=== PATIENT | male | born 1995 | race Caucasian/White ===

== ENCOUNTER 2020-07-03 08:19 | Emergency (ER) | payer BC, OTHER ==
[~2020-07-03] VITALS: Ht 175.3 cm; Wt 113.4 kg
--- NOTE | 2020-07-03 10:16 | ED General ---
General Chief Complaint: Bite-Animal/Human/Insect Stated Complaint: RT WRIST DOG BITE Nursing Triage Note: Patient reports he was walking down [facility] at 3 am on Saturday morning when a small dog attacked him and bit him on his right wrist. The dog ran away and he is unsure of the dog's vaccination status or who it belongs to. Small scratch visible on right wrist. Nursing Sepsis Screen: No Definite Risk Source of Information: Caregiver History of Present Illness Date Seen by Provider: Jul 03, 2020 Time Seen by Provider: 10:09 Initial Comments Patient presents with an abrasion to his right wrist. Injury occurred 2 days ago after being bit or scratched by an unknown dog that had a collar on. Injury occurred in the datastage consultant hours and patient was not able to ID the dog. Animal control was contacted and unable to find the dog based upon the description. The patient immediately washed and repeatedly cleaned the wound. He states there is only a small amount of blood present pump initial bite. Reports no secondary symptoms of infection. No other injuries or complaints. His tetanus is up-to-date. Timing/Duration: 2-3 Days Severity: Mild Modifying Factors: improves with Other Associated Systoms: Other Allergies and Home Medications Allergies Coded Allergies: No Known Drug Allergies (Unverified , 07/03/20) Patient Home Medication List Home Medication List Reviewed: Yes Review of Systems Review of Systems Constitutional: see HPI EENTM: see HPI Respiratory: see HPI Cardiovascular: no symptoms reported Gastrointestinal: see HPI Genitourinary: see HPI Musculoskeletal: see HPI Skin: see HPI Psychiatric/Neurological: See HPI Hematologic/Lymphatic: See HPI Immunological/Allergic: see HPI All Other Systems Reviewed Negative Unless Noted: Yes Past Posuuck-Azriac-Wqpeqx Hx Past Med/Social Hx: Reviewed Nursing Past Med/Soc Hx Patient Social History Alcohol Use: Denies Use Smoking Status: Current Someday Smoker Type Used: Cigarettes 2nd Hand Smoke Exposure: No Recent Infectious Disease Expo: No Recent Hopitalizations: No Seasonal Allergies Seasonal Allergies: No Past Medical History Surgeries: No Respiratory: No Cardiac: No Neurological: No Genitourinary: No Gastrointestinal: No Musculoskeletal: No Endocrine: No HEENT: No Cancer: No Psychosocial: No Integumentary: No Physical Exam Vital Signs Vital Signs - First Documented 07/03/20 08:30 Temp 37.1 Pulse 78 Resp 16 B/P (MAP) 143/79 (100) Pulse Ox 99 O2 Delivery Room Air Capillary Refill : Less Than 3 Seconds Height, Weight, BMI Height: '" Weight: lbs. oz. kg; 36.00 BMI Method: General Appearance: No Apparent Distress Extremity: Other (Patient with 1.5 cm abrasion with underlying contusion to volar aspect of right wrist. There is no laceration but a superficial break in the epidermis was likely to be present at time of injury) Progress/Results/Core Measures Suspected Sepsis Recent Fever Within 48 Hours: No Infection Criteria Present: None New/Unexplained Altered Menta: No Sepsis Screen: No Definite Risk SIRS Temperature: Pulse: 78 Respiratory Rate: 16 Blood Pressure 143 /79 Mean: 100 Results/Orders Vital Signs/I&O 07/03/20 08:30 Temp 37.1 Pulse 78 Resp 16 B/P (MAP) 143/79 (100) Pulse Ox 99 O2 Delivery Room Air Capillary Refill : Less Than 3 Seconds Blood Pressure Mean: 100 Departure Communication (Admissions) Animal control contacted. Rabies vaccination offered since the animals not able to be located in quarantine. Risks versus benefits versus alternatives described and discussed in detail with patient who verbalizes understanding and request vaccination to be given. Impression Primary Impression: Bite by animal Disposition: 01 HOME, SELF-CARE Condition: Stable Departure-Patient Inst. Decision time for Depature: 10:26 Referrals: NO,LOCAL PHYSICIAN (PCP/Family) Primary Care Physician Patient Instructions: Animal Bites (DC) Add. Discharge Instructions: Your were evaluated in the ED for possible rabies exposure. The initial vaccination was given. Please follow-up as an outpatient for the completion of the remaining vaccinations as instructed. All discharge instructions reviewed with patient and/or family. Voiced understanding. MICHEL TORIBIO DO Jul 03, 2020 10:16
[2020-07-03] MEDS ORDERED: RABIES IMMUNE GLOBULIN 300 UNIT/ML 5 ML (HyperRAB) IM ONE (10:30)
[2020-07-03] MEDS ORDERED: RABIES VACCINE HUMAN DIPL CELL 1 ML/2.5 UNITS SYR IM ONE (10:30)
[2020-07-03 11:10] VITALS: BP 151/82
== END 2020-07-03 11:10 | disposition home or self-care (01) ==
LOC: ER FS 08:25
DX: S60.211A Contusion of right wrist, initial encounter (principal); F17.210 Nicotine dependence, cigarettes, uncomplicated; Z23 Encounter for immunization; W54.0XXA Bitten by dog, initial encounter
CPT/HCPCS: 90375; 90675; 99284

== ENCOUNTER 2020-07-17 08:48 | Outpatient (RCR) | payer BC ==
[2020-07-06 08:35] VITALS: BP 130/76
[2020-07-10 09:55] VITALS: BP 133/86
[~2020-07-17] VITALS: Ht 175.3 cm; Wt 113.4 kg
[~2020-07-17 08:48] MED LIST: RABIES VACCINE HUMAN DIPL CELL 1 ML/2.5 UNITS SYR INJ ONE
[2020-07-17 09:10] VITALS: BP 126/86
== END 2020-07-17 09:15 | disposition home or self-care (01) ==
LOC: SDC 08:48
PROVIDERS: ATTEND Emergency Medicine
DX: Z01.89 Encounter for other specified special examinations (principal)
CPT/HCPCS: 90471; 90675

== ENCOUNTER 2021-06-19 11:18 | Emergency (ER) | payer BC ==
[~2021-06-19] VITALS: Ht 172 cm; Wt 65.0 kg
--- NOTE | 2021-06-19 11:28 | ED Neck-Back Pain/Injury ---
General Chief Complaint: Head/Cervical Problems Stated Complaint: NECK INJ History of Present Illness Date Seen by Provider: Jun 19, 2021 Time Seen by Provider: 11:25 Initial Comments 26-year-old male presents "I think I broke my neck" patient reports that he was popping his neck when it made a different sound. Patient drove to the ER without difficulty. Patient was observed by staff walking into the ER with no difficulty. Upon arrival to the ER he became very anxious but had no complaints of any specific numbness, tingling, focal weakness, bowel or bladder issues. Patient is able to move all extremities. Allergies and Home Medications Allergies Coded Allergies: No Known Drug Allergies (Unverified , 07/03/20) Patient Home Medication List Home Medication List Reviewed: Yes Review of Systems Constitutional: No chills, No fever EENTM: see HPI Respiratory: no symptoms reported Cardiovascular: no symptoms reported Gastrointestinal: no symptoms reported Genitourinary: no symptoms reported Musculoskeletal: see HPI Skin: no symptoms reported Psychiatric/Neurological: Anxiety Past Cikxldi-Hrendt-Jxslay Hx Seasonal Allergies Seasonal Allergies: No Past Medical History Surgeries: No Respiratory: No Cardiac: No Neurological: No Genitourinary: No Gastrointestinal: No Musculoskeletal: No Endocrine: No HEENT: No Cancer: No Psychosocial: No Integumentary: No Physical Exam Vital Signs Vital Signs - First Documented 06/19/21 11:20 Temp 36.7 Pulse 121 Resp 20 B/P (MAP) 158/71 (100) Pulse Ox 97 O2 Delivery Room Air Capillary Refill : Height, Weight, BMI Height: '" Weight: lbs. oz. kg; 36.00 BMI Method: General Appearance: Anxious HEENT: PERRL/EOMI Neck: Tender Lateral; No Tender Midline Cardiovascular: No Edema Respiratory: Chest Non Tender, Lungs Clear, Normal Breath Sounds Gastrointestinal: Non Tender, Soft Extremity: Normal Capillary Refill, Non Tender, No Calf Tenderness Neurologic/Psychiatric: Alert, Oriented x3, No Motor/Sensory Deficits, Normal Mood/Affect, customer support representative II-XII Norm as Tested Skin: Normal Color, Warm/Dry Progress/Results/Core Measures Results/Orders My Orders Orders - MICKY HUGO DO Ct Cervical Spine Wo (06/19/21 11:28) Vital Signs/I&O 06/19/21 06/19/21 11:20 12:04 Temp 36.7 35.7 Pulse 121 94 Resp 20 16 B/P (MAP) 158/71 (100) 142/72 Pulse Ox 97 100 O2 Delivery Room Air Room Air Progress Progress Note : Progress Note Patient continued to act like there was some bothering him. I was able to eventually get him to admit that he also ingested a bunch of "D8 Gummies" which are marijuana induced Gummies. I discussed with him that that the likely the cause of his abnormal feeling and that he is somewhat high. Patient has no acute findings on his cervical exam and CT. Patient stable and discharged home Diagnostic Imaging Diagonstic Imaging: CT Plain Films/CT/US/NM/MRI: other Comments Date of Exam:06/19/21 CT CERVICAL SPINE WO PROCEDURE: CT cervical spine without contrast. TECHNIQUE: Multiple contiguous axial images were obtained through the cervical spine without the use of intravenous contrast. Sagittal and coronal reformations were then performed. Auto Exposure Controls were utilized during the CT exam to meet ALARA standards for radiation dose reduction. INDICATION: Popped neck, now with numbness and tingling throughout the body. No prior studies are available for comparison. There is slight reversal normal cervical lordotic curvature. No fractures or subluxation is identified. Prevertebral tissues are within normal limits. Odontoid is intact. IMPRESSION: No acute bony abnormality is detected. Reviewed: Reviewed/Discussed Departure Impression Primary Impression: Neck strain Qualified Codes: S16.1XXA - Strain of muscle, fascia and tendon at neck daron kemp, initial encounter Additional Impression: Cannabis intoxication Qualified Codes: F12.920 - Cannabis use, unspecified with intoxication, uncomplicated Disposition: HOME, SELF-CARE Condition: Stable Departure-Patient Inst. Referrals: NO,LOCAL PHYSICIAN (PCP/Family) Primary Care Physician Patient Instructions: Neck Sprain (DC), Marijuana Use and Addiction Add. Discharge Instructions: Tylenol ibuprofen as needed for your neck spasm 4% topical lidocaine as directed on package All discharge instructions reviewed with patient and/or family. Voiced understanding. MICKY HUGO DO Jun 19, 2021 11:28
--- NOTE | 2021-06-19 12:02 | Diagnostic Imaging Report ---
PROCEDURE: CT cervical spine without contrast. TECHNIQUE: Multiple contiguous axial images were obtained through the cervical spine without the use of intravenous contrast. Sagittal and coronal reformations were then performed. Auto Exposure Controls were utilized during the CT exam to meet ALARA standards for radiation dose reduction. INDICATION: Popped neck, now with numbness and tingling throughout the body. No prior studies are available for comparison. There is slight reversal normal cervical lordotic curvature. No fractures or subluxation is identified. Prevertebral tissues are within normal limits. Odontoid is intact. IMPRESSION: No acute bony abnormality is detected. Dictated by: Dictated on workstation # [id number]
[2021-06-19 12:04] VITALS: BP 142/72
== END 2021-06-19 12:19 | disposition home or self-care (01) ==
LOC: EDUNIT# 11:18 → ER FS 11:20
DX: S16.1XXA Strain of muscle, fascia and tendon at neck level, initial encounter (principal); F12.929 Cannabis use, unspecified with intoxication, unspecified; X50.0XXA Overexertion from strenuous movement or load, initial encounter
CPT/HCPCS: 72125

== ENCOUNTER 2021-12-25 12:14 | Emergency (ER) | payer BC ==
[~2021-12-25] VITALS: Ht 175 cm; Wt 105.0 kg
--- NOTE | 2021-12-25 12:24 | ED General ---
General Chief Complaint: Abdominal/GI Problems Stated Complaint: CHEST PAIN; SOB History of Present Illness Date Seen by Provider: Dec 25, 2021 Time Seen by Provider: 12:22 Initial Comments Come [id number] male with complaints of feeling anxious, chest discomfort, and occasional shortness of breath which has all started today. Patient admits to taking delta 8 today. Denies fever, abdominal pain, palpitations, dizziness. Allergies and Home Medications Allergies Coded Allergies: No Known Drug Allergies (Unverified , 07/03/20) Patient Home Medication List Home Medication List Reviewed: Yes Review of Systems Review of Systems Constitutional: other (light headed) EENTM: no symptoms reported Respiratory: no symptoms reported Cardiovascular: chest pain Gastrointestinal: no symptoms reported Genitourinary: no symptoms reported Musculoskeletal: no symptoms reported Skin: no symptoms reported Psychiatric/Neurological: No Symptoms Reported Hematologic/Lymphatic: No Symptoms Reported Immunological/Allergic: no symptoms reported Past Oxtlxxu-Gghzef-Vbdjbc Hx Seasonal Allergies Seasonal Allergies: No Past Medical History Surgeries: No Respiratory: No Cardiac: No Neurological: No Genitourinary: No Gastrointestinal: No Musculoskeletal: No Endocrine: No HEENT: No Cancer: No Psychosocial: No Integumentary: No Physical Exam Vital Signs Vital Signs - First Documented 12/25/21 16:03 Temp 36.2 Pulse 133 Resp 20 B/P (MAP) 137/86 (103) Pulse Ox 97 O2 Delivery Room Air Capillary Refill : Height, Weight, BMI Height: '" Weight: lbs. oz. kg; 21.00 BMI Method: General Appearance: No Apparent Distress HEENT: PERRL/EOMI, Normal ENT Inspection Neck: Full Range of Motion, Normal Inspection, Non Tender, Supple Respiratory: Chest Non Tender, Lungs Clear, Normal Breath Sounds, No Accessory Muscle Use Cardiovascular: Regular Rate, Rhythm Gastrointestinal: Normal Bowel Sounds, Non Tender, Soft Back: No CVA Tenderness, No Vertebral Tenderness Extremity: Normal Range of Motion Neurologic/Psychiatric: Alert, Oriented x3, No Motor/Sensory Deficits, Normal Mood/Affect Skin: Normal Color Progress/Results/Core Measures Suspected Sepsis SIRS Temperature: Pulse: Respiratory Rate: Laboratory Tests 12/25/21 12:38: White Blood Count 11.7H Blood Pressure / Mean: Laboratory Tests 12/25/21 12:38: Creatinine 0.94, Platelet Count 330, Total Bilirubin 0.6 Results/Orders Lab Results Laboratory Tests Test 12/25/21 12:38 12/25/21 14:27 Range/Units White Blood Count 11.7 H 4.3-11.0 10^3/uL Red Blood Count 5.02 4.30-5.52 10^6/uL Hemoglobin 14.8 13.3-17.7 g/dL Hematocrit 42 40-54 % Mean Corpuscular Volume 84 80-99 fL Mean Corpuscular Hemoglobin 30 25-34 pg Mean Corpuscular Hemoglobin Concent 35 32-36 g/dL Red Cell Distribution Width 12.1 10.0-14.5 % Platelet Count 330 130-400 10^3/uL Mean Platelet Volume 10.0 9.0-12.2 fL Immature Granulocyte % (Auto) 0 % Neutrophils (%) (Auto) 48 42-75 % Lymphocytes (%) (Auto) 41 12-44 % Monocytes (%) (Auto) 9 0-12 % Eosinophils (%) (Auto) 1 0-10 % Basophils (%) (Auto) 0 0-10 % Neutrophils # (Auto) 5.6 1.8-7.8 10^3/uL Lymphocytes # (Auto) 4.8 H 1.0-4.0 10^3/uL Monocytes # (Auto) 1.0 0.0-1.0 10^3/uL Eosinophils # (Auto) 0.1 0.0-0.3 10^3/uL Basophils # (Auto) 0.0 0.0-0.1 10^3/uL Immature Granulocyte # (Auto) 0.0 0.0-0.1 10^3/uL Sodium Level 141 135-145 MMOL/L Potassium Level 3.2 L 3.6-5.0 MMOL/L Chloride Level 103 98-107 MMOL/L Carbon Dioxide Level 25 21-32 MMOL/L Anion Gap 13 5-14 MMOL/L Blood Urea Nitrogen 14 7-18 MG/DL Creatinine 0.94 0.60-1.30 MG/DL Estimat Glomerular Filtration Rate 116 BUN/Creatinine Ratio 15 Glucose Level 141 H 70-105 MG/DL Calcium Level 9.2 8.5-10.1 MG/DL Corrected Calcium 8.5-10.1 MG/DL Magnesium Level 2.0 1.6-2.4 MG/DL Total Bilirubin 0.6 0.1-1.0 MG/DL Aspartate Amino Transf (AST/SGOT) 17 5-34 U/L Alanine Aminotransferase (ALT/SGPT) 12 0-55 U/L Alkaline Phosphatase 73 40-136 U/L Troponin I < 0.30 <0.30 NG/ML Total Protein 7.7 6.4-8.2 GM/DL Albumin 4.9 H 3.2-4.5 GM/DL Urine Color YELLOW Urine Clarity CLEAR Urine pH 6.0 5-9 Urine Specific [place] 1.015 L 1.016-1.022 Urine Protein NEGATIVE NEGATIVE Urine Glucose (UA) NEGATIVE NEGATIVE Urine Ketones NEGATIVE NEGATIVE Urine Nitrite NEGATIVE NEGATIVE Urine Bilirubin NEGATIVE NEGATIVE Urine Urobilinogen 1.0 < = 1.0 MG/DL Urine Leukocyte Esterase NEGATIVE NEGATIVE Urine RBC (Auto) TRACE-I H NEGATIVE Urine RBC 2-5 H /HPF Urine WBC RARE /HPF Urine Squamous Epithelial Cells NONE /HPF Urine Crystals NONE /LPF Urine Bacteria NEGATIVE /HPF Urine Casts NONE /LPF Urine Mucus SMALL H /LPF Urine Culture Indicated NO Urine Opiates Screen NEGATIVE NEGATIVE Urine Oxycodone Screen NEGATIVE NEGATIVE Urine Methadone Screen NEGATIVE NEGATIVE Urine Propoxyphene Screen NEGATIVE NEGATIVE Urine Barbiturates Screen NEGATIVE NEGATIVE Ur Tricyclic Antidepressants Screen NEGATIVE NEGATIVE Urine Phencyclidine Screen NEGATIVE NEGATIVE Urine Amphetamines Screen NEGATIVE NEGATIVE Urine Methamphetamines Screen NEGATIVE NEGATIVE Urine Benzodiazepines Screen NEGATIVE NEGATIVE Urine Cocaine Screen NEGATIVE NEGATIVE Urine Cannabinoids Screen POSITIVE H NEGATIVE My Orders Orders - JAGUAR GOODWIN MD Cbc With Automated Diff (12/25/21 12:22) Comprehensive Metabolic Panel (12/25/21 12:22) Drug Screen Stat (Urine) (12/25/21 12:22) Magnesium (12/25/21 12:22) Ua Culture If Indicated (12/25/21 12:22) Troponin I Fs (12/25/21 12:22) Chest 1 View Ap/Pa Only (12/25/21 12:22) Ed Iv/Invasive Line Start (12/25/21 13:26) Ns Iv 1000 Ml (Sodium Chloride 0.9%) (12/25/21 13:30) Straight Cath (Urinary) (12/25/21 13:26) Potassium Chloride (Tablet) (K Dur Table (12/25/21 15:00) Medications Given in ED Current Medications Medications Dose Ordered Sig/Erick Route Start Time Stop Time Status Last Admin Dose Admin Potassium Chloride 40 meq ONCE ONCE PO 7/18/22 15:00 12/25/21 15:01 DC 12/25/21 15:05 40 MEQ Vital Signs/I&O 12/25/21 16:03 Temp 36.2 Pulse 133 Resp 20 B/P (MAP) 137/86 (103) Pulse Ox 97 O2 Delivery Room Air 12/26/21 00:00 Intake Total 1000 ml Balance 1000 ml Capillary Refill : Progress Note : Progress Note 1.DELTA 8 ABUSE: - CXR: unremarkable - CBC: WBC is 11.7 with normal neutrophils - UDS/ UA: - Follow up with PCP in the next 7 days 2. MILD HYPOKALEMIA: - CMP: s. K is 3.2, otherwise normal - Oral potassium tablet in ER Diagnostic Imaging Diagonstic Imaging: Xray Plain Films/CT/US/NM/MRI: chest Comments [facility], [place] NAME: FANG [facility] REC#: [id number] PT STATUS: REG ER : 1995 PHYSICIAN: JAGUAR GOODWIN MD ADMIT DATE: 12/25/21/ER FS Draft Date of Exam:12/25/21 CHEST 1 VIEW AP/PA ONLY INDICATION: Chest pain Frontal chest obtained at 12:34 p.m. Heart and mediastinal silhouette are normal in appearance. The lungs are clear. There is no pneumothorax or pleural fluid. IMPRESSION: Negative chest. Dictated on workstation # [id number] Dict: 12/25/21 1247 Trans: 12/25/21 1248 [facility] [id number] Interpreted by: FANG MENDOZA MD Electronically signed by: Follow-up with PCP to: Discuss Further Options Departure Impression Primary Impression: Drug abuse Additional Impressions: Hypokalemia Dehydration Disposition: 01 HOME, SELF-CARE Condition: Improved Departure-Patient Inst. Referrals: NO,LOCAL PHYSICIAN (PCP/Family) Primary Care Physician Patient Instructions: High Potassium Diet, Dehydration, Adult ED, Hypokalemia (DC), Drug Abuse and Drug Addiction (DC) Add. Discharge Instructions: -ADVISED TO STOP USING DELTA 8 - hydration advised - follow up with pcp in 3 to 5 days - Return to ER if symptoms worsening All discharge instructions reviewed with patient and/or family. Voiced understanding. JAGUAR GOODWIN MD Dec 25, 2021 12:24
[2021-12-25 12:41] LABS: BASOPHILS % (AUTO) 0 % (0-10); EOSINOPHILS # (AUTO) 0.1 10^3/uL (0.0-0.3); EOSINOPHILS % (AUTO) 1 % (0-10); HEMATOCRIT 42 % (40-54); HEMOGLOBIN 14.8 g/dL (13.3-17.7); LYMPHOCYTES # (AUTO) 4.8 10^3/uL (1.0-4.0); LYMPHOCYTES % (AUTO) 41 % (12-44); MEAN CORPUSCULAR HEMOGLOBIN 30 pg (25-34); MEAN CORPUSCULAR HGB CONC 35 g/dL (32-36); MEAN CORPUSCULAR VOLUME 84 fL (80-99); MONOCYTES % (AUTO) 9 % (0-12); NEUTROPHILS # (AUTO) 5.6 10^3/uL (1.8-7.8); NEUTROPHILS % (AUTO) 48 % (42-75); PLATELET COUNT 330 10^3/uL (130-400); WHITE BLOOD COUNT 11.7 10^3/uL (4.3-11.0)
--- NOTE | 2021-12-25 12:49 | Diagnostic Imaging Report ---
INDICATION: Chest pain Frontal chest obtained at 12:34 p.m. Heart and mediastinal silhouette are normal in appearance. The lungs are clear. There is no pneumothorax or pleural fluid. IMPRESSION: Negative chest. Dictated by: Dictated on workstation # [id number]
[2021-12-25 13:04] LABS: ALANINE AMINOTRANSFERASE 12 U/L (0-55); ALKALINE PHOSPHATASE 73 U/L (40-136); BILIRUBIN,TOTAL 0.6 MG/DL (0.1-1.0); BUN/CREATININE RATIO 15; CALCIUM 9.2 MG/DL (8.5-10.1); CARBON DIOXIDE 25 MMOL/L (21-32); CHLORIDE 103 MMOL/L (98-107); CREATININE SERUM 0.94 MG/DL (0.60-1.30); GFR ESTIMATED 116; GLUCOSE 141 MG/DL (70-105); POTASSIUM 3.2 MMOL/L (3.6-5.0); SODIUM 141 MMOL/L (135-145)
[2021-12-25 13:05] LABS: ALBUMIN 4.9 GM/DL (3.2-4.5); TOTAL PROTEIN 7.7 GM/DL (6.4-8.2)
[2021-12-25] MEDS ORDERED: NS IV 1000 ML 1,000 ML IV SCH (13:30)
[2021-12-25 14:43] LABS: BILIRUBIN,URINE NEGATIVE (NEGATIVE); CLARITY,URINE CLEAR; COLOR,URINE YELLOW; GLUCOSE, URINE (UA) NEGATIVE (NEGATIVE); KETONES,URINE NEGATIVE (NEGATIVE); LEUKOCYTE ESTERASE ,URINE NEGATIVE (NEGATIVE); NITRITE,URINE NEGATIVE (NEGATIVE); PROTEIN,URINE NEGATIVE (NEGATIVE)
[2021-12-25 14:55] LABS: BACTERIA,URINE NEGATIVE /HPF; WBC,URINE RARE /HPF
[2021-12-25 14:56] LABS: AMPHETAMINE SCREEN, URINE NEGATIVE (NEGATIVE); BARBITURATE SCREEN URINE NEGATIVE (NEGATIVE); BENZODIAZEPINES SCREEN URINE NEGATIVE (NEGATIVE); CANNABINOID SCREEN, URINE POSITIVE (NEGATIVE); COCAINE SCREEN URINE NEGATIVE (NEGATIVE); METHADONE STAT NEGATIVE (NEGATIVE); OPIATE SCREEN URINE NEGATIVE (NEGATIVE); OXYCODONE STAT NEGATIVE (NEGATIVE); PROPOXYPHENE STAT NEGATIVE (NEGATIVE); TRICYCLIC ANTIDEPRESSANTS SCRE NEGATIVE (NEGATIVE)
[2021-12-25] MEDS ORDERED: KCL 20 MEQ TAB (K-DUR) PO ONE (15:00)
[2021-12-25 16:03] VITALS: BP 137/86
== END 2021-12-25 16:15 | disposition home or self-care (01) ==
LOC: EDUNIT# 12:14 → ER FS 12:16
DX: E86.0 Dehydration (principal); E87.6 Hypokalemia; F12.10 Cannabis abuse, uncomplicated; Z28.310 Unvaccinated for COVID-19
CPT/HCPCS: 36415; 71045; 80053; 80306; 81000; 83735; 84484; 85025

== ENCOUNTER 2022-04-17 11:56 | Emergency (ER) | payer BC ==
[~2022-04-17] VITALS: Ht 175 cm; Wt 105.0 kg
--- NOTE | 2022-04-17 12:03 | ED GI ---
General Chief Complaint: Abdominal/GI Problems Stated Complaint: LRQ PAIN; NAUSEA; FEVER History of Present Illness Date Seen by Provider: Apr 17, 2022 Time Seen by Provider: 12:09 Initial Comments 27-year-old male presents with right lower quadrant pain. Patient reports that he has been having pain on and off for a couple weeks. However today got a lot worse. That is kind of lower diffuse but worse in the right lower quadrant. That he got really hot and feverish feeling. He got nauseated. He denies any vomiting or diarrhea. He denies any urinary symptoms. He denies any flank pain. Patient went to urgent care who then sent him to the ER for further evaluation. Allergies and Home Medications Allergies Coded Allergies: No Known Drug Allergies (Unverified , 07/03/20) Patient Home Medication List Home Medication List Reviewed: Yes Review of Systems Review of Systems Constitutional: No chills; fever EENTM: No Symptoms Reported Respiratory: No Symptoms Reported Cardiovascular: No Symptoms Reported Gastrointestinal: Abdominal Pain; Denies Constipated, Denies Diarrhea; Nausea; Denies Vomiting Genitourinary: No Symptoms Reported; Denies Burning, Denies Flank Pain Musculoskeletal: no symptoms reported Skin: no symptoms reported Psychiatric/Neurological: No Symptoms Reported Endocrine: No Symptoms Reported Past Dpwfszt-Ohrsbw-Mivftd Hx Seasonal Allergies Seasonal Allergies: No Past Medical History Surgeries: No Respiratory: No Cardiac: No Neurological: No Genitourinary: No Gastrointestinal: No Musculoskeletal: No Endocrine: No HEENT: No Cancer: No Psychosocial: No Integumentary: No Physical Exam Vital Signs Vital Signs - First Documented 04/17/22 12:00 Temp 36.5 Pulse 72 Resp 16 B/P (MAP) 142/84 (103) Pulse Ox 100 O2 Delivery Room Air Capillary Refill : Height/Weight/BMI Height: '" Weight: lbs. oz. kg; 34.00 BMI Method: General Appearance: WD/WN, no apparent distress HEENT: PERRL/EOMI Neck: full range of motion, supple Respiratory: lungs clear, normal breath sounds Cardiovascular: normal peripheral pulses, regular rate, rhythm Gastrointestinal: soft, tenderness (Right lower quadrant) Extremities: normal range of motion, non-tender, normal inspection Back: no CVA tenderness Neurologic/Psychiatric: alert, normal mood/affect, oriented x 3 Skin: warm/dry Progress/Results/Core Measures Results/Orders Lab Results Laboratory Tests Test 04/17/22 12:00 04/17/22 12:30 Range/Units Urine Color YELLOW Urine Clarity CLEAR Urine pH 6.0 5-9 Urine Specific Bush 1.020 1.016-1.022 Urine Protein NEGATIVE NEGATIVE Urine Glucose (UA) NEGATIVE NEGATIVE Urine Ketones TRACE H NEGATIVE Urine Nitrite NEGATIVE NEGATIVE Urine Bilirubin NEGATIVE NEGATIVE Urine Urobilinogen 1.0 < = 1.0 MG/DL Urine Leukocyte Esterase NEGATIVE NEGATIVE Urine RBC (Auto) 1+ H NEGATIVE Urine RBC 0-2 /HPF Urine WBC NONE /HPF Urine Squamous Epithelial Cells NONE /HPF Urine Crystals NONE /LPF Urine Bacteria NEGATIVE /HPF Urine Casts NONE /LPF Urine Mucus SMALL H /LPF Urine Culture Indicated NO White Blood Count 16.7 H 4.3-11.0 10^3/uL Red Blood Count 5.09 4.30-5.52 10^6/uL Hemoglobin 15.0 13.3-17.7 g/dL Hematocrit 43 40-54 % Mean Corpuscular Volume 84 80-99 fL Mean Corpuscular Hemoglobin 30 25-34 pg Mean Corpuscular Hemoglobin Concent 35 32-36 g/dL Red Cell Distribution Width 12.1 10.0-14.5 % Platelet Count 273 130-400 10^3/uL Mean Platelet Volume 10.3 9.0-12.2 fL Immature Granulocyte % (Auto) 0 % Neutrophils (%) (Auto) 85 H 42-75 % Lymphocytes (%) (Auto) 10 L 12-44 % Monocytes (%) (Auto) 4 0-12 % Eosinophils (%) (Auto) 0 0-10 % Basophils (%) (Auto) 0 0-10 % Neutrophils # (Auto) 14.2 H 1.8-7.8 10^3/uL Lymphocytes # (Auto) 1.7 1.0-4.0 10^3/uL Monocytes # (Auto) 0.7 0.0-1.0 10^3/uL Eosinophils # (Auto) 0.1 0.0-0.3 10^3/uL Basophils # (Auto) 0.1 0.0-0.1 10^3/uL Immature Granulocyte # (Auto) 0.1 0.0-0.1 10^3/uL Neutrophils % (Manual) 76 % Lymphocytes % (Manual) 16 % Monocytes % (Manual) 6 % Eosinophils % (Manual) 0 % Basophils % (Manual) 1 % Band Neutrophils 1 % Sodium Level 137 135-145 MMOL/L Potassium Level 3.9 3.6-5.0 MMOL/L Chloride Level 98 98-107 MMOL/L Carbon Dioxide Level 25 21-32 MMOL/L Anion Gap 14 5-14 MMOL/L Blood Urea Nitrogen 14 7-18 MG/DL Creatinine 0.91 0.60-1.30 MG/DL Estimat Glomerular Filtration Rate 120 BUN/Creatinine Ratio 15 Glucose Level 114 H 70-105 MG/DL Calcium Level 10.0 8.5-10.1 MG/DL Corrected Calcium 8.5-10.1 MG/DL Total Bilirubin 0.9 0.1-1.0 MG/DL Aspartate Amino Transf (AST/SGOT) 19 5-34 U/L Alanine Aminotransferase (ALT/SGPT) 16 0-55 U/L Alkaline Phosphatase 67 40-136 U/L C-Reactive Protein < 0.30 <0.50 MG/DL Total Protein 7.7 6.4-8.2 GM/DL Albumin 5.0 H 3.2-4.5 GM/DL Lipase 18 8-78 U/L My Orders Orders - HUGO,MICKY L DO Cbc With Automated Diff (04/17/22 12:11) Comprehensive Metabolic Panel (04/17/22 12:11) Lipase (04/17/22 12:11) Crp Fs (04/17/22 12:11) Abdomen Flat & Upright/Decub (04/17/22 12:11) Ua Culture If Indicated (04/17/22 12:12) Ct Abd/Pelv W (Appendicitis) (04/17/22 12:44) Iohexol Injection (Omnipaque 350 Mg/Ml 1 (04/17/22 13:15) Received Contrast (Hold Metformin- Contr (04/17/22 13:15) Sodium Chloride Flush (Catheter Flush Sy (04/17/22 13:15) Ns (Ivpb) (Sodium Chloride 0.9% Ivpb Bag (04/17/22 13:15) Manual Differential (04/17/22 12:30) Medications Given in ED Current Medications Medications Dose Ordered Sig/Erick Route Start Time Stop Time Status Last Admin Dose Admin Iohexol 100 ml ONCE ONCE IV 04/17/22 13:15 04/17/22 13:16 DC 04/17/22 13:18 80 ML Sodium Chloride 10 ml NEEDED PRN IV 04/17/22 13:15 04/17/22 13:18 10 ML Sodium Chloride 100 ml ONCE ONCE IV 04/17/22 13:15 04/17/22 13:16 DC 04/17/22 13:18 100 ML Vital Signs/I&O 04/17/22 12:00 Temp 36.5 Pulse 72 Resp 16 B/P (MAP) 142/84 (103) Pulse Ox 100 O2 Delivery Room Air Progress Progress Note : Progress Note Patient with unknown leukocytosis on labs. Patient with negative CT abdomen and pelvis. Patient does report he had this pain for quite some time with unknown etiology. We discussed different options and he would like to try an antibiotic due to the leukocytosis and possible unknown cause of the pain. I agreed that we would try Bactrim. Recommend they follow-up with a primary care provider in a week if symptoms have not improved for repeat evaluation. Patient stable and discharged Diagnostic Imaging Diagonstic Imaging: Xray Plain Films/CT/US/NM/MRI: abdomen Comments ABDOMEN FLAT & UPRIGHT/DECUB CLINICAL INDICATIONS: Patient reports abdominal pain off and on for a month. Patient will monitor cramping but last night he had increased pain and soft bowel movement. EXAM: X-ray of the abdomen with multiple supine and upright views. COMPARISON: None. FINDINGS: There is a nonobstructed bowel gas pattern. There is no evidence of abdominal free air. There are no focal calcifications overlying the expected regions/ pathways of both kidneys, ureters, and bladder regions. Phleboliths are seen in the pelvis. There is mild left curvature of the lumbar spine. IMPRESSION: There is no radiographic evidence for acute abdominal/ pelvic process or urinary tract stones. Departure Impression Primary Impression: Abdominal pain Qualified Codes: R10.31 - Right lower quadrant pain Additional Impression: Leukocytosis, unspecified Disposition: 01 HOME, SELF-CARE Condition: Stable Departure-Patient Inst. Referrals: NO,LOCAL PHYSICIAN (PCP/Family) Primary Care Physician Patient Instructions: Severe Abdominal Pain, Adult (DC), White Blood Cell Count Differential Test Add. Discharge Instructions: Please follow-up with your primary care provider for recheck of your symptoms in 1 week if they have not improved. You may try Tylenol, ibuprofen and 4% topical lidocaine with menthol to the affected area as needed for pain All discharge instructions reviewed with patient and/or family. Voiced understanding. Scripts Sulfamethoxazole/Trimethoprim (Bactrim Ds Tablet) 1 Each Tablet 1 EACH PO BID for 5 Days, #10 TAB Prov: MICKY HUGO DO 04/17/22 MICKY HUGO DO Apr 17, 2022 12:03
[2022-04-17 12:18] LABS: BILIRUBIN,URINE NEGATIVE (NEGATIVE); CLARITY,URINE CLEAR; COLOR,URINE YELLOW; GLUCOSE, URINE (UA) NEGATIVE (NEGATIVE); KETONES,URINE TRACE (NEGATIVE); LEUKOCYTE ESTERASE ,URINE NEGATIVE (NEGATIVE); NITRITE,URINE NEGATIVE (NEGATIVE); PROTEIN,URINE NEGATIVE (NEGATIVE)
[2022-04-17 12:23] LABS: BACTERIA,URINE NEGATIVE /HPF; RBC,URINE 0-2 /HPF
[2022-04-17 12:35] LABS: BASOPHILS # (AUTO) 0.1 10^3/uL (0.0-0.1); BASOPHILS % (AUTO) 0 % (0-10); EOSINOPHILS # (AUTO) 0.1 10^3/uL (0.0-0.3); EOSINOPHILS % (AUTO) 0 % (0-10); HEMATOCRIT 43 % (40-54); LYMPHOCYTES # (AUTO) 1.7 10^3/uL (1.0-4.0); LYMPHOCYTES % (AUTO) 10 % (12-44); MEAN CORPUSCULAR HEMOGLOBIN 30 pg (25-34); MEAN CORPUSCULAR HGB CONC 35 g/dL (32-36); MEAN CORPUSCULAR VOLUME 84 fL (80-99); MEAN PLATELET VOLUME 10.3 fL (9.0-12.2); MONOCYTES # (AUTO) 0.7 10^3/uL (0.0-1.0); MONOCYTES % (AUTO) 4 % (0-12); NEUTROPHILS # (AUTO) 14.2 10^3/uL (1.8-7.8); NEUTROPHILS % (AUTO) 85 % (42-75); PLATELET COUNT 273 10^3/uL (130-400); WHITE BLOOD COUNT 16.7 10^3/uL (4.3-11.0)
--- NOTE | 2022-04-17 12:35 | Diagnostic Imaging Report ---
CLINICAL INDICATIONS: Patient reports abdominal pain off and on for a month. Patient will monitor cramping but last night he had increased pain and soft bowel movement. EXAM: X-ray of the abdomen with multiple supine and upright views. COMPARISON: None. FINDINGS: There is a nonobstructed bowel gas pattern. There is no evidence of abdominal free air. There are no focal calcifications overlying the expected regions/ pathways of both kidneys, ureters, and bladder regions. Phleboliths are seen in the pelvis. There is mild left curvature of the lumbar spine. IMPRESSION: There is no radiographic evidence for acute abdominal/ pelvic process or urinary tract stones. Dictated by: Dictated on workstation # [id number]
[2022-04-17 12:59] LABS: ALANINE AMINOTRANSFERASE 16 U/L (0-55); ALKALINE PHOSPHATASE 67 U/L (40-136); BILIRUBIN,TOTAL 0.9 MG/DL (0.1-1.0); BUN/CREATININE RATIO 15; CARBON DIOXIDE 25 MMOL/L (21-32); CHLORIDE 98 MMOL/L (98-107); CREATININE SERUM 0.91 MG/DL (0.60-1.30); GFR ESTIMATED 120; GLUCOSE 114 MG/DL (70-105); POTASSIUM 3.9 MMOL/L (3.6-5.0); SODIUM 137 MMOL/L (135-145); TOTAL PROTEIN 7.7 GM/DL (6.4-8.2)
[2022-04-17 13:00] LABS: LIPASE 18 U/L (8-78)
[2022-04-17] MEDS ORDERED: CATHETER FLUSH 10 ML SYR IV PRN (13:15)
[2022-04-17] MEDS ORDERED: IOHEXOL 350 MG/ML 100 ML (OMNIPAQUE 350) VIAL IV ONE (13:15)
[2022-04-17] MEDS ORDERED: NS 100 ML (IVPB) BAG IV ONE (13:15)
[2022-04-17] MEDS ORDERED: HOLD METFORMIN - RECEIVED CONTRAST 20 ML VIAL IV SCH (13:15)
--- NOTE | 2022-04-17 13:43 | Diagnostic Imaging Report ---
INDICATION: Right lower quadrant pain and increased white count. TECHNIQUE: Multiple contiguous axial images were obtained through the abdomen and pelvis after the administration of intravenous contrast. All CT scans use one or more of the following dose optimizing techniques: automated exposure control, MA and/or KvP adjustment based on patient size and exam type or iterative reconstruction. COMPARISON: There is no previous study for comparison. FINDINGS: The visualized portions of the lung bases are clear. There were no pleural fluid collections. There is no free intraperitoneal air. The liver and gallbladder appear normal. Spleen is not enlarged and shows no focal lesions. The pancreas and adrenals appear normal. The kidneys bilaterally are unremarkable. There is no retroperitoneal mass or adenopathy. There is no ascites or abnormal fluid collection. Visualized bowel loops show no sign of obstruction. There is no pelvic free fluid or mass. The appendix appears unremarkable. IMPRESSION: No sign of bowel obstruction or abdominal mass or abnormal fluid collection. Appendix appears unremarkable. Dictated by: Dictated on workstation # [id number]
[2022-04-17 13:51] LABS: BAND NEUTROPHILS 1 %; BASOPHILS % (MANUAL) 1 %; EOSINOPHILS % (MANUAL) 0 %; LYMPHOCYTES % (MANUAL) 16 %; MONOCYTES % (MANUAL) 6 %; NEUTROPHILS % (MANUAL) 76 %
[2022-04-17] MEDS ORDERED: SULF1TAB38 PO (13:58)
[2022-04-17 13:59] VITALS: BP 136/78
== END 2022-04-17 14:00 | disposition home or self-care (01) ==
LOC: EDUNIT# 11:56 → ER FS 11:58
DX: R10.31 Right lower quadrant pain (principal); D72.829 Elevated white blood cell count, unspecified; Z28.310 Unvaccinated for COVID-19
CPT/HCPCS: 36415; 74019; 74177; 80053; 81000; 83690; 85007; 85025; 85027; 86141; Q9967

== ENCOUNTER 2022-04-25 21:47 | Emergency (ER) | payer BC ==
[~2022-04-25] VITALS: Ht 175 cm; Wt 100.0 kg
[~2022-04-25 21:47] MED LIST changes: -RABIES VACCINE HUMAN DIPL CELL 1 ML/2.5 UNITS SYR INJ ONE; +SULF1TAB38 PO
[2022-04-25 21:50] VITALS: BP 144/79
--- NOTE | 2022-04-25 21:57 | ED General ---
General Stated Complaint: FOOD DOWN AIRPIPE Source of Information: Patient Exam Limitations: No Limitations History of Present Illness Date Seen by Provider: Apr 25, 2022 Time Seen by Provider: 21:54 Initial Comments 27-year-old male presents emerged department today thinking he may have inhaled a piece of chicken into his lungs. He states he was eating chicken eyelids and had a coughing fit and burning in his chest. He is no longer coughing but still has a burning in his chest no difficulty swallowing or speaking. No shortness of breath. Allergies and Home Medications Allergies Coded Allergies: No Known Drug Allergies (Unverified , 07/03/20) Patient Home Medication List Home Medication List Reviewed: Yes Sulfamethoxazole/Trimethoprim (Bactrim Ds Tablet) 1 Each Tablet, 1 EACH PO BID Prescribed by: MICKY HUGO on 04/17/22 0825 Review of Systems Review of Systems Constitutional: no symptoms reported EENTM: no symptoms reported Respiratory: no symptoms reported Cardiovascular: no symptoms reported Gastrointestinal: see HPI Genitourinary: no symptoms reported Musculoskeletal: no symptoms reported Skin: no symptoms reported Psychiatric/Neurological: No Symptoms Reported Hematologic/Lymphatic: No Symptoms Reported Immunological/Allergic: no symptoms reported Past Opqvhby-Brioqk-Miwyqw Hx Seasonal Allergies Seasonal Allergies: No Past Medical History Surgeries: No Respiratory: No Cardiac: No Neurological: No Genitourinary: No Gastrointestinal: No Musculoskeletal: No Endocrine: No HEENT: No Cancer: No Psychosocial: No Integumentary: No Family Medical History Reviewed Nursing Family Hx No Pertinent Family Hx Physical Exam Vital Signs Capillary Refill : Height, Weight, BMI Height: '" Weight: lbs. oz. kg; 34.00 BMI Method: General Appearance: No Apparent Distress, WD/WN HEENT: PERRL/EOMI, Normal ENT Inspection, Pharynx Normal Neck: Full Range of Motion, Normal Inspection, Non Tender, Supple Respiratory: Chest Non Tender, Lungs Clear, Normal Breath Sounds, No Accessory Muscle Use, No Respiratory Distress Cardiovascular: Regular Rate, Rhythm, No Edema, No Gallop, No JVD, No Murmur, Normal Peripheral Pulses Gastrointestinal: Normal Bowel Sounds, No Organomegaly, No Pulsatile Mass, Non Tender, Soft Extremity: Normal Capillary Refill, Normal Inspection, Normal Range of Motion, Non Tender, No Calf Tenderness Neurologic/Psychiatric: Alert, Oriented x3, Normal Mood/Affect Progress/Results/Core Measures Suspected Sepsis SIRS Temperature: Pulse: Respiratory Rate: Blood Pressure / Mean: Results/Orders Vital Signs/I&O Capillary Refill : Departure Communication (Admissions) Patient is hemodynamically stable. No evidence for airway or esophageal foreign body. No coughing with clear lungs. He is swallowing spit, fluids and has eaten food since the event. Discharged home in stable condition with supportive care. Impression Primary Impression: Encounter for medical screening examination Disposition: HOME, SELF-CARE Condition: Stable Departure-Patient Inst. Referrals: NO,LOCAL PHYSICIAN (PCP/Family) Primary Care Physician Add. Discharge Instructions: Increase your fluids at home. The sensation in your chest should go away in the next couple of days. Return to the emergency department for any severe concerns. ANNIE RAMON DO Apr 25, 2022 21:57
== END 2022-04-25 22:14 | disposition home or self-care (01) ==
LOC: EDUNIT# 21:47 → ER FS 21:48
DX: Z00.00 Encounter for general adult medical examination without abnormal findings (principal); Z28.310 Unvaccinated for COVID-19
CPT/HCPCS: 99281